=== PATIENT | female | born 1970 | race Caucasian/White ===

== ENCOUNTER → 2017-03-21 | Outpatient (CLI) | payer MEDICAID ==
[~2017-03-21] VITALS: Ht 157.5 cm; Wt 252.2 kg
[~2017-03-21] MED LIST: DOBUTamine 1000MCG/ML 250 ML IV ONE; DOBUTamine 1000MCG/ML 250 ML IV SCH
[2017-03-22 16:15] VITALS: BP 143/79
== END | disposition home or self-care (01) ==
LOC: Rad HDHVI 14:57
PROVIDERS: ATTEND Internal Medicine Cardiovascular Disease
DX: R07.9 Chest pain, unspecified (principal); R42 Dizziness and giddiness
CPT/HCPCS: 93005; 93017; 93306; 96365; G0463; J1250